=== PATIENT | female | born 1995 | race African-American/Black ===

== ENCOUNTER 2023-05-23 10:15 | Emergency (ER) | payer MEDICAID ==
[~2023-05-23] VITALS: Ht 165.1 cm; Wt 74.0 kg
[2023-05-23 10:25] VITALS: O2SAT 100
[2023-05-23] MEDS ORDERED: ACETAMINOPHEN 325MG TABLET PO ONE (11:00)
[2023-05-23 11:07] LABS: BASOPHILS % 0.5 % (0.0-2.0); EOSINOPHILS % 0.3 % (0.0-5.0); HEMATOCRIT. 38.5 % (36.0-48.0); LYMPHOCYTES % 8.1 % (20.0-50.0); MEAN CORPUSCULAR HGB CONC 33.8 g/dL (31.0-37.0); MEAN CORPUSCULAR VOLUME 85.8 fL (81.0-99.0); MEAN PLATELET VOLUME 8.3 fl (7.4-10.4); MONOCYTES % 5.7 % (2.0-8.0); NEUTROPHILS % 85.4 % (40.0-76.0); PLATELET 282 x1000/uL (130-400); RED BLOOD CELL COUNT 4.49 mill/uL (4.2-5.4); RED CELL DISTRIBUTION WIDTH 13.2 % (11.6-14.6); WHITE BLOOD COUNT 14.1 x1000/uL (4.5-11.0)
[2023-05-23 11:41] LABS: CHLORIDE 106 mEq/L (98-107); INDEX HEMOLYSI 1 (1-3); INDEX ICTERIC 1 (1-4); INDEX LIPEMIC 1 (1-3); POTASSIUM 3.6 mEq/L (3.5-5.1); SODIUM 137 mEq/L (136-145)
[2023-05-23 12:24] LABS: ALANINE AMINOTRANSFERASE 14 IU/L (13-61); ALBUMIN 3.5 g/dL (3.4-5.0); ASPARTATE AMINOTRANSFERASE 11 IU/L (15-37); B-HCG QUANTITATIVE 1902 mIU/mL (<3); BILIRUBIN TOTAL 1.3 mg/dL (0.1-1.0); CALCIUM 8.1 mg/dL (8.5-10.1); CARBON DIOXIDE 23 mEq/L (21-32); CREATININE 0.8 mg/dL (0.6-1.3); GLUCOSE 96 mg/dL (70-105); PROTEIN TOTAL 7.3 g/dL (6.0-8.3); UREA NITROGEN BLOOD 11 mg/dL (7-21)
[2023-05-23] MEDS ORDERED: ACETAMINOPHEN 325MG TABLET PO NR (13:45)
[2023-05-23] MEDS ORDERED: ONDANSETRON 4MG ODT PO ONE (13:45)
[2023-05-23] MEDS ORDERED: MORPHINE SULFATE 10 MG/ML CPJ IM ONE (13:45)
[2023-05-23] MEDS ORDERED: ONDANSETRON HCL 4MG/2ML INJ IM ONE (14:45)
[2023-05-23 15:30] VITALS: BP 120/62; PULSE 81; RESP 16; TEMP 98.6
== END 2023-05-23 15:37 | disposition home or self-care (01) ==
LOC: ER 12:32
DX: O20.0 Threatened abortion (principal); Z3A.12 12 weeks gestation of pregnancy
CPT/HCPCS: 80053; 84702; 85025; 86850; 86900; 86901; 36415; 76801; 76817; 96372; 99285; Q0162; J2405; J2270; Z7610